=== PATIENT | male | born 1970 | race African-American/Black ===

== ENCOUNTER 2016-03-17 06:54 | Inpatient (IN) | payer OTHER ==
[~2016-03-17] VITALS: Ht 170.2 cm; Wt 93.0 kg
[2016-03-17 07:45] LABS: BASOPHILS % (AUTO) 0.4 % (0.0-2.0); DIFF TOTAL % 100 %; EOSINOPHILS % (AUTO) 0.1 % (0.0-6.0); HEMATOCRIT 42 % (39-51); HEMOGLOBIN 13.7 g/dL (13.5-17.5); LYMPHOCYTES # (AUTO) 1.8 /CMM (0.8-4.8); LYMPHOCYTES % (AUTO) 23.6 % (20.0-44.0); MEAN CORPUSCULAR HEMOGLOBIN 29 PG (26.0-33.0); MEAN CORPUSCULAR HGB CONC 32 g/dl (31.0-36.0); MEAN CORPUSCULAR VOLUME 88 fL (80-96); MONOCYTES # (AUTO) 0.6 /CMM (0.1-1.30); MONOCYTES % (AUTO) 8.4 % (2.0-12.0); NEUTROPHILS % (AUTO) 67.5 % (43.0-81.0); PLATELET COUNT (AUTO) 292 /CMM (150-450); RED BLOOD CELL COUNT(AUTO) 4.79 MIL/uL (4.5-6.0); WHITE BLOOD COUNT (AUTO) 7.5 K/uL (4.3-11.0)
[2016-03-17 07:47] LABS: CALCIUM, SERUM 9.3 mg/dL (8.5-10.1); CREATININE 1.2 mg/dL (0.6-1.3); POTASSIUM 3.6 mmol/L (3.5-5.1)
[2016-03-17 07:55] LABS: ALBUMIN 4.3 g/dL (3.4-5.0); BILIRUBIN,DIRECT 0.1 mg/dL (0.0-0.2); BILIRUBIN,TOTAL 0.5 mg/dL (0.2-1.0); INDIRECT BILIRUBIN 0.4 mg/dL (0.0-1.1); TOTAL PROTEIN, SERUM 8.9 g/dL (6.4-8.2); TROPONIN I 0.082 ng/mL (0.00-0.056)
[2016-03-17 07:58] LABS: INR 1.07 (0.87-1.13); PROTHROMBIN TIME 11.6 SECS (9.5-12.7)
[2016-03-17 08:14] LABS: CANNABINOID, URINE NEGATIVE (NEGATIVE); PHENCYCLIDINE SCREEN,URINE NEGATIVE (NEGATIVE)
[2016-03-17] MEDS ORDERED: ASPIRIN 325 MG TABLET PO ONE (08:30)
[2016-03-17] MEDS ORDERED: ASPIRIN 325 MG TABLET ONE (08:30)
[2016-03-17] MEDS ORDERED: hydrALAZINE HCL IV 20 MG VIAL IV ONE (09:30)
[2016-03-17] MEDS ORDERED: hydrALAZINE HCL IV 20 MG VIAL ONE (09:38)
[2016-03-17 12:00] VITALS: BP 159/109
[2016-03-17] MEDS ORDERED: HYDROCODONE/APAP 5/325MG 1 EACH TABLET PO PRN (13:30)
[2016-03-17] MEDS ORDERED: ONDANSETRON HCL/PF 4 MG/2 ML VIAL IVP PRN (13:30)
[2016-03-17] MEDS ORDERED: ACETAMINOPHEN 325 MG TABLET PO PRN (13:30)
[2016-03-17] MEDS ORDERED: ZOLPIDEM TARTRATE 5 MG TABLET PO PRN (13:30)
[2016-03-17] MEDS ORDERED: MAGNESIUM HYDROXIDE 30 ML UDC PO PRN (13:30)
[2016-03-17] MEDS ORDERED: Z GUARD REMEDY 2 OZ OINT TP PRN (13:30)
[2016-03-17] MEDS ORDERED: MAG HYDROX/AL HYDROX/SIMETH 30 ML UDC PO PRN (13:30)
[2016-03-17 14:48] LABS: TROPONIN I 0.082 ng/mL (0.00-0.056)
[2016-03-17 14:52] LABS: THYROID STIMULATING HORMONE 4.157 uIU/mL (0.358-3.74)
[2016-03-17 16:00] VITALS: BP 141/89
[2016-03-17] MEDS: WARFARIN SODIUM 5 MG TABLET PO SCH (17:44)
[2016-03-17 20:00] VITALS: BP 142/94
[2016-03-17] MEDS: ATORVASTATIN 40 MG TABLET PO SCH (20:42)
[2016-03-17 21:35] VITALS: BP 142/94
[2016-03-17] MEDS ORDERED: SIMVASTATIN 10 MG TABLET PO SCH (22:00)
[2016-03-18] VITALS (7 sets, daily range): BP systolic 109–151; BP diastolic 56–92
[2016-03-18 06:33] LABS: BASOPHILS % (AUTO) 0.5 % (0.0-2.0); DIFF TOTAL % 100 %; EOSINOPHILS % (AUTO) 0.6 % (0.0-6.0); HEMATOCRIT 40 % (39-51); LYMPHOCYTES # (AUTO) 2.3 /CMM (0.8-4.8); LYMPHOCYTES % (AUTO) 34.5 % (20.0-44.0); MEAN CORPUSCULAR HEMOGLOBIN 29 PG (26.0-33.0); MEAN CORPUSCULAR HGB CONC 33 g/dl (31.0-36.0); MEAN CORPUSCULAR VOLUME 87 fL (80-96); MONOCYTES # (AUTO) 0.8 /CMM (0.1-1.30); MONOCYTES % (AUTO) 11.3 % (2.0-12.0); NEUTROPHILS # (AUTO) 3.6 /CMM (1.8-8.9); NEUTROPHILS % (AUTO) 53.1 % (43.0-81.0); PLATELET COUNT (AUTO) 271 /CMM (150-450); RED BLOOD CELL COUNT(AUTO) 4.55 MIL/uL (4.5-6.0); WHITE BLOOD COUNT (AUTO) 6.7 K/uL (4.3-11.0)
[2016-03-18 07:02] LABS: CALCIUM, SERUM 8.6 mg/dL (8.5-10.1); CREATININE 1.1 mg/dL (0.6-1.3); PHOSPHORUS 3.6 mg/dL (2.5-4.9); POTASSIUM 3.7 mmol/L (3.5-5.1)
[2016-03-18 07:21] LABS: THYROID STIMULATING HORMONE 3.994 uIU/mL (0.358-3.74)
[2016-03-18] MEDS: PANTOPRAZOLE 40 MG TABLET.DR PO SCH (09:43)
[2016-03-18] MEDS: ASPIRIN EC 325 MG TABLET.DR PO SCH (09:43)
[2016-03-18] MEDS ORDERED: GADOVERSETAMIDE 2.5 MMOL/5 ML VIAL IJ ONE (15:34)
[2016-03-18] MEDS ORDERED: QUETIAPINE FUMARATE 25 MG TABLET PO PRN (16:00)
[2016-03-18] MEDS: WARFARIN SODIUM 5 MG TABLET PO SCH (17:50)
[2016-03-18] MEDS: ATORVASTATIN 40 MG TABLET PO SCH (21:46)
[2016-03-19 00:24] VITALS: BP 119/41
[2016-03-19 03:55] VITALS: BP 133/71
[2016-03-19 07:01] VITALS: BP 125/93
[2016-03-19] MEDS: PANTOPRAZOLE 40 MG TABLET.DR PO SCH (08:09)
[2016-03-19] MEDS: ASPIRIN EC 325 MG TABLET.DR PO SCH (08:10)
[2016-03-19 12:00] VITALS: BP 115/81
[2016-03-19 16:00] VITALS: BP 132/74
[2016-03-19] MEDS ORDERED: SECONDARY IV SET 1 EA INFUS.SET MC ONE (16:23)
[2016-03-19 16:53] LABS: INR 1.12 (0.87-1.13); PROTHROMBIN TIME 12.1 SECS (9.5-12.7)
[2016-03-19] MEDS: WARFARIN SODIUM 5 MG TABLET PO SCH (17:19)
[2016-03-19 20:00] VITALS: BP 137/95
[2016-03-19] MEDS: ATORVASTATIN 40 MG TABLET PO SCH (21:33)
[2016-03-20 07:15] LABS: BASOPHILS % (AUTO) 0.4 % (0.0-2.0); DIFF TOTAL % 100 %; EOSINOPHILS % (AUTO) 0.7 % (0.0-6.0); HEMATOCRIT 41 % (39-51); HEMOGLOBIN 13.1 g/dL (13.5-17.5); LYMPHOCYTES # (AUTO) 2.2 /CMM (0.8-4.8); LYMPHOCYTES % (AUTO) 42.1 % (20.0-44.0); MEAN CORPUSCULAR HEMOGLOBIN 29 PG (26.0-33.0); MEAN CORPUSCULAR HGB CONC 32 g/dl (31.0-36.0); MEAN CORPUSCULAR VOLUME 88 fL (80-96); MONOCYTES # (AUTO) 0.5 /CMM (0.1-1.30); MONOCYTES % (AUTO) 9.5 % (2.0-12.0); NEUTROPHILS # (AUTO) 2.5 /CMM (1.8-8.9); NEUTROPHILS % (AUTO) 47.3 % (43.0-81.0); PLATELET COUNT (AUTO) 262 /CMM (150-450); WHITE BLOOD COUNT (AUTO) 5.3 K/uL (4.3-11.0)
[2016-03-20 07:42] LABS: CALCIUM, SERUM 8.5 mg/dL (8.5-10.1); CREATININE 1.2 mg/dL (0.6-1.3); POTASSIUM 3.8 mmol/L (3.5-5.1)
[2016-03-20 08:00] VITALS: BP 143/91
[2016-03-20] MEDS: ASPIRIN EC 325 MG TABLET.DR PO SCH (09:00)
[2016-03-20] MEDS: PANTOPRAZOLE 40 MG TABLET.DR PO SCH (09:15)
== END 2016-03-20 13:10 | disposition home or self-care (01) | DRG 45 ==
LOC: ER 06:56 → TELE 10:59 → MED 03-19 13:18
DX: I63.9 Cerebral infarction, unspecified (principal); G93.41 Metabolic encephalopathy; G93.89 Other specified disorders of brain; I69.351 Hemiplegia and hemiparesis following cerebral infarction affecting right dominant side; I10 Essential (primary) hypertension; R47.01 Aphasia; E66.9 Obesity, unspecified; R13.10 Dysphagia, unspecified; R47.02 Dysphasia
CPT/HCPCS: 36415; 70450-TC; 70553-TC; 71010-TC; 80048-TC; 80061-TC; 80076-TC; 80305; 82962-TC; 83735-TC; 84100-TC; 84443-TC; 84484-TC; 85025-TC; 85610-TC; 85730-TC; 87081-TC; 92521; 93307-TC; 97001-TC; A4606; A9579; G0480; J0360; Z7610